=== PATIENT | female | born 1955 | race Caucasian/White ===

== ENCOUNTER 2017-03-21 11:26 | Outpatient (CLI) | payer BC ==
--- NOTE | 2017-03-21 14:15 | MMO ---
BILATERAL SCREENING MAMMOGRAMS: Date: 03/21/17 Comparison made to prior exams from 2014 and 2015. This patient's mammogram was interpreted with the assistance of computer-aided detection. FINDINGS: Heterogeneously dense glandular pattern. There are scattered benign-appearing calcifications which ap pear stable. No mass or distortion. No interval change identified. Recommend one year follow-up. IMPRESSION: BIRADS 2: Benign Finding(s) POS: JOE
== END 2017-03-21 11:27 | disposition home or self-care (01) ==
LOC: SCSMAMMO 11:26
PROVIDERS: ATTEND Obstetrics & Gynecology
DX: Z12.31 Encounter for screening mammogram for malignant neoplasm of breast (principal)
CPT/HCPCS: 77067; G0202

== ENCOUNTER 2018-04-11 09:57 | Outpatient (CLI) | payer BC ==
--- NOTE | 2018-04-11 11:54 | MMO ---
BILATERAL DIGITAL SCREENING MAMMOGRAMS: HISTORY: A 62-year-old female presents for digital screening mammography. COMPARISON: 03/21/2017, 03/08/2016, 02/17/2015, 02/12/2014 FINDINGS: This patient's mammogram is interpreted with the assistance of computer aided detection. The breasts are heterogeneously dense, which can obscure small masses. There are stable, typically b enign calcifications in both breasts. Stable left intramammary lymph node. Stable multiple bilatera l parenchymal density asymmetries. IMPRESSION: BI-RADS Category 2-Benign findings. Continued routine screening. POS: JOE
== END 2018-04-11 09:58 | disposition home or self-care (01) ==
LOC: SCSMAMMO 09:57
PROVIDERS: ATTEND Obstetrics & Gynecology
DX: Z12.31 Encounter for screening mammogram for malignant neoplasm of breast (principal)
CPT/HCPCS: 77067

== ENCOUNTER 2020-08-26 11:18 | Outpatient (CLI) | payer MEDICARE, OTHER | END 2020-08-26 11:19 | disposition home or self-care (01) | LOC: BICRAD 11:18 | PROVIDERS: ATTEND Obstetrics & Gynecology | DX: M47.22 Other spondylosis with radiculopathy, cervical region (principal); M47.26 Other spondylosis with radiculopathy, lumbar region; M43.16 Spondylolisthesis, lumbar region | CPT/HCPCS: 72050; 72110 ==